=== PATIENT | female | born 1940 | race Caucasian/White ===

== ENCOUNTER → 2017-06-16 | Outpatient (CLI) | payer OTHER | LOC: BMCIMAGING 13:14 | PROVIDERS: ATTEND Internal Medicine | DX: Z12.31 Encounter for screening mammogram for malignant neoplasm of breast (principal); Z13.820 Encounter for screening for osteoporosis; M85.80 Other specified disorders of bone density and structure, unspecified site; Z80.3 Family history of malignant neoplasm of breast; Z85.3 Personal history of malignant neoplasm of breast | CPT/HCPCS: G0202 ==

== ENCOUNTER → 2017-06-19 | Outpatient (CLI) | payer OTHER | LOC: BMCIMAGING 10:26 | PROVIDERS: ATTEND Internal Medicine | DX: S62.395D Other fracture of fourth metacarpal bone, left hand, subsequent encounter for fracture with routine healing (principal); M17.12 Unilateral primary osteoarthritis, left knee; M79.89 Other specified soft tissue disorders; M85.442 Solitary bone cyst, left hand; M25.462 Effusion, left knee ==

== ENCOUNTER → 2017-06-26 | Outpatient (CLI) | payer OTHER | LOC: BMCIMAGING 13:30 | PROVIDERS: ATTEND Orthopaedic Surgery Hand Surgery | DX: S62.395D Other fracture of fourth metacarpal bone, left hand, subsequent encounter for fracture with routine healing (principal); S62.617D Displaced fracture of proximal phalanx of left little finger, subsequent encounter for fracture with routine healing; M18.12 Unilateral primary osteoarthritis of first carpometacarpal joint, left hand; M19.042 Primary osteoarthritis, left hand ==

== ENCOUNTER → 2017-07-17 | Outpatient (CLI) | payer OTHER | LOC: BMCIMAGING 08:06 | PROVIDERS: ATTEND Orthopaedic Surgery Hand Surgery | DX: S62.34 Nondisplaced fracture of base of other metacarpal bone (principal); S62.617G Displaced fracture of proximal phalanx of left little finger, subsequent encounter for fracture with delayed healing ==

== ENCOUNTER → 2018-06-23 | Outpatient (CLI) | payer OTHER | LOC: FIMAGING 09:47 | PROVIDERS: ATTEND Physician Assistant Medical | DX: M41.85 Other forms of scoliosis, thoracolumbar region (principal) ==

== ENCOUNTER → 2018-08-04 | Outpatient (CLI) | payer OTHER | LOC: BMCIMAGING 13:14 | PROVIDERS: ATTEND Internal Medicine | DX: Z12.31 Encounter for screening mammogram for malignant neoplasm of breast (principal) ==

== ENCOUNTER 2019-03-01 06:04 | Day surgery (SDC) | payer OTHER ==
[2019-03-01] MEDS ORDERED: LIDOCAINE 1% 2 ML INJ ID PRN (06:43)
[2019-03-01] MEDS ORDERED: LR 1,000 ML IV ONE (06:43)
[2019-03-01] MEDS ORDERED: LIDOCAINE 1% 2 ML INJ ONE (06:48)
[2019-03-01] MEDS ORDERED: ceFAZolin 2 GM/DEXTROSE 100 ML IV ONE (07:04)
[2019-03-01] MEDS ORDERED: BUPIVACAINE 0.5% 30 ML SDV ONE (07:06)
[2019-03-01] MEDS ORDERED: LIDOCAINE 1% 5 ML SDV ONE (07:09)
--- NOTE | 2019-03-01 07:30 | PDANEPAE ---
ANE History of Present Illness L inguinal hernia s/f open repair ANE Past Medical History - Cardiovascular History Hx Hypertension: No Hx Arrhythmias: No Hx Chest Pain: No Hx Coronary Artery / Peripheral Vascular Disease: No Hx CHF / Valvular Disease: No Hx Palpitations: No - Pulmonary History Hx COPD: No Hx Asthma/Reactive Airway Disease: No Hx Recent Upper Respiratory Infection: No Hx Oxygen in Use at Home: No Hx Sleep Apnea: No Sleep Apnea Screening Result - Last Documented: Negative - Neurologic History Hx Cerebrovascular Accident: No Hx Seizures: No Hx Dementia: No - Endocrine History Hx Diabetes: No Hypothyroid: Yes - Renal History Hx Renal Disorders: No - Liver History Hx Hepatic Disorders: No - Neurological & Psychiatric Hx Hx Neurological and Psychiatric Disorders: Yes Neurological / Psychiatric History Comment: tingling in fingers. anxiety - Cancer History Hx Cancer: Yes Cancer History Comment: dcis breast cancer. skin cancer - Congenital Disorder History Hx Congenital Disorders: No - GI History Hx Gastrointestinal Disorders: Yes Gastrointestinal History Comment: acid reflux occasionally - Other Health History Other Health History: bilat cataracts - Chronic Pain History Chronic Pain: No - Surgical History Prior Surgeries: oral surgery tooth extraction and implant placed ANE Review of Systems Review of Systems: - Exercise capacity METS (RN): 5 METS ANE Patient History - Allergies Allergies/Adverse Reactions: No Known Allergies Allergy (Verified 03/01/19 06:53) - Home Medications Home medications: home medication list seen and reviewed Home Medications: Ascorbic Acid 02/26/19 [Last Taken 02/26/19] Cholecalciferol (Vitamin D3) 02/26/19 [Last Taken 02/26/19] Co Q-10 02/26/19 [Last Taken 02/26/19] Escitalopram Oxalate 02/26/19 [Last Taken 02/28/19 08:00] Herbals/Supplements -Info Only 02/26/19 [Last Taken 02/26/19] Levothyroxine 02/26/19 [Last Taken 02/28/19 08:00] Vitamin B Complex 02/26/19 [Last Taken 02/26/19] - NPO status NPO Status: no food or drink >8 hours NPO Since - Liquids (Date): 02/28/19 NPO Since - Liquids (Time): 18:30 NPO Since - Solids (Date): 02/28/19 NPO Since - Solids (Time): 18:30 - Anes Hx Anes Hx: no prior problems - Smoking Hx Smoking Status: Never smoked - Alcohol Use Alcohol Use: Rarely - Family Anes Hx Family Anes Hx: none Family Hx Anesthesia Complications: none ANE Labs/Vital Signs - Labs - CBC WBC: reviewed and ok - Labs - BMP Sodium: ok - Vital Signs Blood Pressure: 116/71 Heart Rate: 67 Respiratory Rate: 20 O2 Sat (%): 92 Height: 157.48 cm Weight: 65.771 kg ANE Physical Exam - Airway Neck exam: FROM Mallampati Score: Class 2 Mouth exam: poor dentition - Pulmonary Pulmonary: no respiratory distress - Cardiovascular Cardiovascular: regular rate and rhythym - ASA Status ASA Status: II ANE Anesthesia Plan Anesthesia Plan: GA w LMA, MAC (GA vs MAC, will discuss with Dr. Friedman)
--- NOTE | 2019-03-01 07:40 | PDHPUP ---
History & Physical Update H&P update statement: This history and physical update is based on an assessment of the patient which was completed after admission or registration (within 24 hours), but prior to the surgery/procedure. H&P update: H&P reviewed & patient examined, no change in patient's condition since H&P completed
[2019-03-01] MEDS ORDERED: fentaNYL 100 MCG/2 ML INJ ONE (07:52)
[2019-03-01] MEDS ORDERED: LIDOCAINE 2% 100 MG/5 ML SYR ONE (07:53)
[2019-03-01] MEDS ORDERED: PROPOFOL/EMULSION 500 MG/50 ML BOTTLE IV ONE (07:53)
[2019-03-01] MEDS ORDERED: LIDOCAINE 2% JELLY 6 ML TOPICAL SYR ONE (07:57)
[2019-03-01] MEDS ORDERED: ONDANSETRON 4 MG/2 ML VIAL ONE (08:04)
[2019-03-01] MEDS ORDERED: DEXAMETHASONE 4 MG/ML VIAL ONE (08:04)
[2019-03-01] MEDS ORDERED: LABETALOL HCL 5 MG/ML 20 ML MDV IVP PRN (08:35)
[2019-03-01] MEDS ORDERED: LR 500 ML IV PRN (08:35)
[2019-03-01] MEDS ORDERED: MEPERIDINE 25 MG/0.5 ML AMP IVP PRN (08:35)
[2019-03-01] MEDS ORDERED: METOCLOPRAMIDE 10 MG/2 ML VIAL IVP PRN (08:35)
[2019-03-01] MEDS ORDERED: fentaNYL 100 MCG/2 ML INJ IVP PRN (08:35)
[2019-03-01] MEDS ORDERED: PHENYLEPHRINE HCL 100 MCG/ML SYR IVP PRN (08:35)
[2019-03-01] MEDS ORDERED: ACETAMINOPHEN 500 MG TAB PO PRN (08:35)
[2019-03-01] MEDS ORDERED: ONDANSETRON 4 MG/2 ML VIAL IVP PRN (08:35)
[2019-03-01] MEDS ORDERED: oxyCODONE IR 5 MG TAB PO PRN (08:35)
[2019-03-01] MEDS ORDERED: DEXAMETHASONE 4 MG/ML VIAL IVP PRN (08:35)
[2019-03-01] MEDS ORDERED: ALBUTEROL 3 ML DEYVIAL IH PRN (08:35)
[2019-03-01] MEDS ORDERED: NALOXONE HCL 0.4 MG/ML INJ IVP PRN (08:35)
[2019-03-01] MEDS ORDERED: PROMETHAZINE HCL 25 MG/ML INJ IVP PRN (08:35)
--- NOTE | 2019-03-01 08:48 | POSTOPPROG ---
Post Op Note Date of Operation: 03/01/19 Surgeon: Michael Friedman Anesthesiologist: Dr. Jennings Anesthesia: IV Sedation Pre-op Diagnosis: LIH Post-op Diagnosis: LIH Procedure: LIHR Inf/Abcess present in the surg proc area at time of surgery?: No EBL: Minimal
--- NOTE | 2019-03-01 09:26 | POSTANESTH ---
Post Anesthetic Evaluation Cardiovascular Status: Normal, Stable Respiratory Status: Normal, Stable, Tx Decrease in SpO2 Level of Consciousness/Mental Status: Can Participate in Eval Pain Control: Adequate, Prn Tx Ordered Nausea/Vomiting Control: Adequate, Prn Tx Ordered Complications Possibly Related to Anesthesia: None Noted
[2019-03-01 11:18] VITALS: BP 110/72
--- NOTE | 2019-03-01 11:55 | GOP ---
[f rep st] OPERATIVE REPORT DATE OF OPERATION: 03/01/2019 SURGEON: Eduar Friedman MD ANESTHESIA: Monitored anesthetic care. ANESTHESIOLOGIST: Dr. Jennings. PREOPERATIVE DIAGNOSIS: Left inguinal hernia. POSTOPERATIVE DIAGNOSIS: Left inguinal hernia. PROCEDURE PERFORMED: Open left inguinal hernia repair. FINDINGS: Patient had a [id number] direct hernia with a small lipoma. No other lesions were identified. ESTIMATED BLOOD LOSS: 20 cc. INDICATIONS: This is a 78-year-old female with a history of left groin pain and bulge. Risks and be nefits of the procedure were discussed with the patient and her family. Their questions were answere d. They wished to proceed. DESCRIPTION OF PROCEDURE: The patient was placed in the supine position. After the induction of alejandra quate IV sedation, the patient was prepped and draped in the standard surgical fashion. Marcaine 0.5 % was injected throughout the left groin for local anesthesia. An oblique incision was made and jennifer ed to the subcutaneous tissue using cautery. The external oblique was incised in the direction of it s fibers. The cord was then surrounded at the pubic tubercle. The cord structures were then carefull y dissected, preserving the vas and vessels. The hernia was then dissected down to preperitoneal fat and reduced. A plug was fashioned from Marlex and secured using 2-0 Vicryl interrupted. An onlay p atch was created and affixed using 2-0 Prolene. Enough room was seen for the cord and an instrument tip. Good hemostasis was noted. The external oblique and Johann's were approximated using 3-0 Vicryl in a running fashion. Skin was closed with 5-0 Biosyn subcuticular. The wound was sterilely dresse d, the patient was taken to the post-anesthesia care unit in stable condition. COMPLICATIONS: None. DRAINS: None. ADDENDUM: The round ligament was left intact. /[id number]/MODL
--- NOTE | 2019-03-02 12:13 | CPEKG ---
Test Reason : OPEN Blood Pressure : / mmHG Vent. Rate : 058 BPM Atrial Rate : 058 BPM P-R Int : 116 ms QRS Dur : 097 ms QT Int : 455 ms P-R-T Axes : -10 -05 022 degrees QTc Int : 447 ms Sinus rhythm Confirmed by Mikhail Moses ([id number] on 03/02/2019 12:12:48 PM Referred By: MORGAN FORTUNE Confirmed By:Mikhail Moses
== END 2019-03-01 11:10 | disposition home or self-care (01) ==
LOC: FSGY 06:04
PROVIDERS: ATTEND Surgery
PROC: 0YU60JZ Supplement Left Inguinal Region with Synthetic Substitute, Open Approach (ICD-10-PCS; principal; 2019-03-01 07:45)
DX: K40.90 Unilateral inguinal hernia, without obstruction or gangrene, not specified as recurrent (principal); E03.9 Hypothyroidism, unspecified; Z85.828 Personal history of other malignant neoplasm of skin; Z85.3 Personal history of malignant neoplasm of breast
CPT/HCPCS: C1781; J0690; J1100; J2001; J2405; J2704; J3010